=== PATIENT | male | born 1945 | race Caucasian/White ===

== ENCOUNTER 2019-03-09 14:09 | Observation (INO) | payer MEDICARE, BC ==
--- NOTE | 2019-03-09 15:04 | CR ---
[id number] RAD/RAD Chest PA And Lateral EXAM: RAD Chest PA And Lateral INDICATION: FEVER, DIZZINESS. COMPARISON: None. DISCUSSION: Cardiomediastinal silhouette is enlarged. No infiltrate, effusion, pneumothorax, or edema. Central predominant airway thickening. IMPRESSION: Findings consistent with bronchitis. No focal infiltrate. Armin Solis DO 03/09/19 1507 Thank you for allowing us to participate in the care of your patient.
[2019-03-09 15:08] LABS: ANION GAP 17.4 mmol/L (5-15); CHLORIDE,CL 100 mmol/L (98-115); SODIUM,NA 135 mmol/L (136-145)
[2019-03-09] MEDS ORDERED: Sodium Chloride 0.9% 10 ML Syringe FLUSH PRN (15:09)
[2019-03-09] MEDS ORDERED: Acetaminophen 500 MG Tab PO ONE (15:10)
[2019-03-09] MEDS ORDERED: Sodium Chloride 0.9% 1,000 ML IV ONE ×2 (15:12→15:13)
[2019-03-09] MEDS ORDERED: methylPREDNISolone Sodium Succinate 125 MG/2 ML SDV IVPUSH ONE (15:12)
[2019-03-09] MEDS ORDERED: Albuterol 0.083% 2.5 MG/3 ML Neb Soln NEB ONE (15:19)
[2019-03-09] MEDS ORDERED: Oseltamivir 75 MG Cap PO ONE (15:35)
--- NOTE | 2019-03-09 16:07 | EDM.PDOC ---
ED HPI GENERAL MEDICAL PROBLEM - General Chief Complaint: Fever Stated Complaint: NOT FEELING WELL Time Seen by Provider: 03/09/19 14:20 Source of Information: Reports: Patient History Limitations: Reports: No Limitations - History of Present Illness INITIAL COMMENTS - FREE TEXT/NARRATIVE: 73-year-old male presents emergency room with the complaints of fever, chills, cough, shortness of breath and dizziness complaints. He has not felt well over the last 24-36 hours. He's not had much of an appetite. He feels a week. He's had some mild difficulty with breathing and has a history of asthma with an albuterol inhaler as needed. Denies any abdominal pain or headaches. He has some muscle aches. Onset: Gradual Onset Date: 03/08/19 Duration: Day(s):, Getting Worse Location: Reports: Generalized Quality: Reports: Ache Severity: Severe Improves with: Reports: None Worsens with: Reports: Movement (Dizziness, vertigo) Associated Symptoms: Reports: Cough, Fever/Chills, Malaise, Shortness of Breath , Weakness - Related Data Allergies Allergy/AdvReac Type Severity Reaction Status Date / Time house dust Allergy Shortness Verified 03/09/19 14:55 of Breath Home Meds: Home Meds Albuterol [Ventolin HFA] 1 puff INH BID 03/09/19 [History] Escitalopram Oxalate 20 mg PO DAILY 03/09/19 [History] Montelukast Sodium 10 mg PO DAILY 03/09/19 [History] Primidone 50 mg PO DAILY 03/09/19 [History] Propranolol HCl [Propranolol] 80 mg PO DAILY 03/09/19 [History] Spironolactone [Aldactone] 25 mg PO DAILY 03/09/19 [History] Topiramate 50 mg PO DAILY 03/09/19 [History] allopurinoL [Zyloprim] 300 mg PO DAILY 03/09/19 [History] clonazePAM [Clonazepam] 0.5 mg PO BID 03/09/19 [History] Social & Family History - Tobacco Use Smoking Status *Q: Never Smoker Second Hand Smoke Exposure: No - Caffeine Use Caffeine Use: Reports: Soda - Recreational Drug Use Recreational Drug Use: No ED ROS GENERAL - Review of Systems Review Of Systems: See Below Constitutional: Reports: Fever, Chills, Weakness, Fatigue, Decreased Appetite HEENT: Reports: No Symptoms Respiratory: Reports: Shortness of Breath, Cough Cardiovascular: Reports: Blood Pressure Problem, Lightheadedness. Denies: Chest Pain Endocrine: Reports: No Symptoms GI/Abdominal: Denies: Abdominal Pain, Nausea, Vomiting : Reports: No Symptoms Musculoskeletal: Reports: No Symptoms Skin: Reports: Diaphoresis. Denies: Rash Neurological: Reports: Dizziness Psychiatric: Reports: No Symptoms Hematologic/Lymphatic: Reports: No Symptoms Immunologic: Reports: No Symptoms ED EXAM, GENERAL - Physical Exam Exam: See Below Exam Limited By: No Limitations General Appearance: Alert, Mild Distress, Obese Eye Exam: Bilateral Eye: EOMI Ears: Normal Canal, Hearing Grossly Normal, Normal TMs Nose: Normal Inspection Throat/Mouth: Normal Inspection, Normal Voice, No Airway Compromise Head: Atraumatic, Normocephalic Neck: Normal Inspection, Supple Respiratory/Chest: Respiratory Distress (Tachypnea), Decreased Breath Sounds Cardiovascular: Regular Rate, Rhythm GI/Abdominal: Normal Bowel Sounds, Soft, Non-Tender Back Exam: Normal Inspection Extremities: Normal Inspection Neurological: Alert, Oriented Psychiatric: Normal Affect, Normal Mood Skin Exam: Warm, Diaphoretic Course - Vital Signs Last Recorded V/S: Last Vital Signs Temp 101.3 F H 03/09/19 14:36 Pulse 70 03/09/19 14:36 Resp 31 H 03/09/19 14:36 BP 184/66 H 03/09/19 14:36 Pulse Ox 96 03/09/19 14:36 - Orders/Labs/Meds Orders: Active Orders 24 hr Category Date Time Status BASIC METABOLIC PANEL,BMP [CHEM] Stat Lab 03/09/19 14:30 Received Labs: Laboratory Tests 03/09/19 Range/Units 14:30 WBC 12.34 H (5.00-10.00) 10^3/uL RBC 4.53 (4.50-6.00) 10^6/uL Hgb 13.0 (13.0-17.0) g/dL Hct 39.0 L (40.0-52.0) % MCV 86.1 (82.0-92.0) fL MCH 28.7 (27.0-31.0) pg MCHC 33.3 (32.0-36.0) g/dL RDW 14.4 (11.5-14.5) % Plt Count 240 (150-400) 10^3/uL MPV 10.6 H (7.4-10.4) fL Immature Gran % (Auto) 0.2 (0.0-5.0) % Neut % (Auto) 79.3 H (50.0-70.0) % Lymph % (Auto) 13.8 L (20.0-40.0) % [place] % (Auto) 6.2 (2.0-8.0) % Eos % (Auto) 0.1 L (1.0-3.0) % Baso % (Auto) 0.4 (0.0-1.0) % Immature Gran # (Auto) 0.03 (0.00-0.50) 10^3/uL Neut # (Auto) 9.78 H (2.50-7.00) 10^3/uL Lymph # (Auto) 1.70 (1.00-4.00) 10^3/uL [place] # (Auto) 0.77 (0.10-0.80) 10^3/uL Eos # (Auto) 0.01 L (0.10-0.30) 10^3/uL Baso # (Auto) 0.05 (0.00-0.10) 10^3/uL - Re-Assessments/Exams Free Text/Narrative Re-Assessment/Exam: 03/09/19 16:17 1 L fluid was given normal saline 125 mg site Medrol IV Albuterol nebulized treatment Departure - Departure Time of Disposition: 16:18 Disposition: Refer to Observation Condition: Fair Clinical Impression: Influenza A virus present, Bronchitis, Tachypnea - Discharge Information Referrals: PCP,Not In Area [Primary Care Provider] - Sepsis Event Note - Evaluation Sepsis Screening Result: No Definite Risk Current Stage of Sepsis: Sepsis Possible Source of Sepsis: Pulmonary - Focused Exam Sepsis Event Note Statement: Focused Sepsis Exam Completed Vital Signs: Vital Signs Temp Pulse Resp BP Pulse Ox 03/09/19 14:36 101.3 F H 70 31 H 184/66 H 96 Respiratory Effort Without Exertion: Abdominal Breathing Pulse Description: 2+ Normal Peripheral Pulse Location: Radial Skin Exam (Focused Sepsis): Diaphoretic Date Exam was Performed: 03/09/19 Time Exam was Performed: 16:22 - My Orders Last 24 Hours: My Active Orders 03/09/19 14:30 BASIC METABOLIC PANEL,BMP [CHEM] Stat - Assessment/Plan Last 24 Hours: My Active Orders 03/09/19 14:30 BASIC METABOLIC PANEL,BMP [CHEM] Stat Assessment:: Influenza A Tachypnea Bronchitis Plan: Patient has underlying cardiopulmonary compromise due to his history of asthma and bronchitis. He continues to be symptomatic with feeling dizzy. His temperature remains 101 despite thousand milligrams of Tylenol. We will plan on placing him in observation with fluid resuscitation, nebulizer treatments as needed and continue to work on lowering the patient's fever. He was given 75 mg of Tamiflu in the emergency room. We will start a second liter of fluids running at 125 an hour. Discussed this with the [facility] Cony Wright nurse practitioner who will manage the patient's care in the hospital.
[2019-03-09] MEDS ORDERED: Sodium Chloride 0.9% 1,000 ML ONE (16:27)
[2019-03-09] MEDS ORDERED: Acetaminophen 325 MG Tab PO PRN (16:40)
[2019-03-09] MEDS: Sodium Chloride 0.9% 1,000 ML IV SCH (17:22)
--- NOTE | 2019-03-09 17:22 | PCM.HP.2 ---
H&P History of Present Illness - General Date of Service: 03/09/19 Admit Problem/Dx: Admission Diagnosis/Problem Admission Diagnosis/Problem Influenza due to Influenza A virus Source of Information: Patient, Old Records, RN History Limitations: Reports: No Limitations - Related Data Allergies/Adverse Reactions: Allergies Allergy/AdvReac Type Severity Reaction Status Date / Time house dust Allergy Shortness Verified 03/09/19 14:55 of Breath Home Medications: Home Meds Albuterol [Ventolin HFA] 1 puff INH BID 03/09/19 [History] Escitalopram Oxalate 20 mg PO DAILY 03/09/19 [History] Fluticasone/Salmeterol [Advair 500-50] 1 puff BID 03/09/19 [History] Montelukast Sodium 10 mg PO DAILY 03/09/19 [History] Primidone 50 mg PO DAILY 03/09/19 [History] Propranolol HCl [Propranolol] 80 mg PO DAILY 03/09/19 [History] Spironolactone [Aldactone] 25 mg PO DAILY 03/09/19 [History] Topiramate 50 mg PO DAILY 03/09/19 [History] allopurinoL [Zyloprim] 300 mg PO DAILY 03/09/19 [History] clonazePAM [Clonazepam] 0.5 mg PO BID 03/09/19 [History] Past Medical History HEENT History: Reports: None Cardiovascular History: Reports: Hypertension Respiratory History: Reports: Asthma, Sleep Apnea Gastrointestinal History: Reports: None Genitourinary History: Reports: None Musculoskeletal History: Reports: Gout Neurological History: Reports: Other (See Below) Other Neuro History: hand tremors Psychiatric History: Reports: Depression Endocrine/Metabolic History: Reports: Obesity/BMI 30+ Hematologic History: Reports: None Immunologic History: Reports: None Oncologic (Cancer) History: Reports: None Dermatologic History: Reports: None - Past Surgical History Head Surgeries/Procedures: Reports: None HEENT Surgical History: Reports: None Cardiovascular Surgical History: Reports: None Respiratory Surgical History: Reports: None Endocrine Surgical History: Reports: None Neurological Surgical History: Reports: None Dermatological Surgical History: Reports: None Social & Family History - Family History Cardiac: Reports: Hypertension (mother & father) Neurological: Reports: Parkinson's (mother) - Tobacco Use Smoking Status *Q: Never Smoker Second Hand Smoke Exposure: No - Caffeine Use Caffeine Use: Reports: Soda - Recreational Drug Use Recreational Drug Use: No H&P Review of Systems - Review of Systems: Review Of Systems: See Below General: Reports: Fever, Chills, Malaise, Weakness, Fatigue, Diaphoresis, Decreased Appetite HEENT: Reports: Glasses. Denies: Headaches, Rhinitis, Post Nasal Drip, Sinus Congestion, Sore Throat Pulmonary: Reports: Shortness of Breath, Pleuritic Chest Pain, Cough, Sputum Cardiovascular: Reports: Dyspnea on Exertion, Lightheadedness. Denies: Chest Pain, Edema Gastrointestinal: Reports: Decreased Appetite. Denies: Abdominal Pain, Constipation, Diarrhea, Nausea, Vomiting Genitourinary: Reports: No Symptoms Musculoskeletal: Reports: Muscle Pain Psychiatric: Denies: Confusion Neurological: Reports: Dizziness, Headache Immunologic: Reports: Grass Allergy Exam - Exam Exam: See Below - Vital Signs Vital Signs: Last Vital Signs Temp 100.3 F 03/09/19 16:35 Pulse 73 03/09/19 16:35 Resp 25 H 03/09/19 16:35 BP 161/56 H 03/09/19 16:35 Pulse Ox 94 L 03/09/19 16:35 Weight: 244 lb 12.8 oz - Exam Quality Assessment: DVT Prophylaxis (lovenox ). No: Supplemental Oxygen (94% on room air), Urinary Catheter General: Alert, Oriented (x3), Cooperative, Other (No acute distress, Obese) HEENT: Conjunctiva Clear, Hearing Intact, TMs Clear, Glasses, Other (Moody face appearance). No: Mucosa Moist & [place] (pink and dry), Posterior Pharynx Clear ( mild erythema w/o exudate) Neck: Supple, Trachea Midline. No: Lymphadenopathy Lungs: Wheezing (expiratory wheezes throughout), Other (Mild tachypnea, no accessory muscle use). No: Crackles, Rhonchi Cardiovascular: Regular Rate, Regular Rhythm, Normal S1, Normal S2. No: Systolic Murmur, Diastolic Murmur GI/Abdominal Exam: Soft, Non-Tender, No Distention, Abnormal Bowel Sounds ( hypoactive x 4), Other (large, round) Extremities: No Pedal Edema Skin: Warm, Moist Neuro Extensive - Mental Status: Alert, Oriented x3, Normal Mood/Affect, Normal Cognition, Memory Intact Psychiatric: Alert, Normal Affect, Normal Mood - Patient Data Lab Results Last 24 hrs: Laboratory Results - last 24 hr 03/09/19 03/09/19 Range/Units 14:30 14:30 WBC 12.34 H (5.00-10.00) 10^3/uL RBC 4.53 (4.50-6.00) 10^6/uL Hgb 13.0 (13.0-17.0) g/dL Hct 39.0 L (40.0-52.0) % MCV 86.1 (82.0-92.0) fL MCH 28.7 (27.0-31.0) pg MCHC 33.3 (32.0-36.0) g/dL RDW 14.4 (11.5-14.5) % Plt Count 240 (150-400) 10^3/uL MPV 10.6 H (7.4-10.4) fL Immature Gran % (Auto) 0.2 (0.0-5.0) % Neut % (Auto) 79.3 H (50.0-70.0) % Lymph % (Auto) 13.8 L (20.0-40.0) % [place] % (Auto) 6.2 (2.0-8.0) % Eos % (Auto) 0.1 L (1.0-3.0) % Baso % (Auto) 0.4 (0.0-1.0) % Immature Gran # (Auto) 0.03 (0.00-0.50) 10^3/uL Neut # (Auto) 9.78 H (2.50-7.00) 10^3/uL Lymph # (Auto) 1.70 (1.00-4.00) 10^3/uL [place] # (Auto) 0.77 (0.10-0.80) 10^3/uL Eos # (Auto) 0.01 L (0.10-0.30) 10^3/uL Baso # (Auto) 0.05 (0.00-0.10) 10^3/uL Sodium 135 L (136-145) mmol/L Potassium 3.8 (3.3-5.3) mmol/L Chloride 100 (98-115) mmol/L Carbon Dioxide 21.4 (21.0-32.0) mmol/L Anion Gap 17.4 H (5-15) mmol/L BUN 14 (6-25) mg/dL Creatinine 0.89 (0.51-1.17) mg/dL Est Cr Clr Drug Dosing 71.52 mL/min Estimated GFR (MDRD) > 60 mL/min Glucose 115 H (75 - 99) mg/dL Calcium 8.1 L (8.7-10.3) mg/dL Result Diagrams: 03/09/19 14:30 03/09/19 14:30 [place] Results Last 24 hrs: Microbiology 03/09/19 15:20 Influenza Type A Antigen Screen - Final Nasal, Unspecified Positive Influenza A Ag Influenza Type B Antigen Screen - Final NEGATIVE INFLUENZA B VIRUS AG REFERENCE RANGE: NEGATIVE Sepsis Event Note - Evaluation Sepsis Screening Result: Sepsis Risk - Focused Exam Vital Signs: Vital Signs Temp Temp Pulse Resp BP Pulse Ox 03/09/19 16:35 100.3 F 73 25 H 161/56 H 94 L 03/09/19 16:10 101.1 F H 70 29 H 158/55 H 95 03/09/19 15:44 101.1 F H 03/09/19 15:14 101.3 F H 03/09/19 14:36 101.3 F H 70 31 H 184/66 H 96 03/09/19 14:25 101.3 F H 70 31 H 184/66 H 96 Date Exam was Performed: 03/09/19 Time Exam was Performed: 17:58 Problem List Initiated/Reviewed/Updated: Yes Orders Last 24hrs: Active Orders 24 hr Category Date Time Status Patient Status [ADT] Routine ADT 03/09/19 16:40 Active Height and Weight [RC] DAILY Care 03/09/19 16:40 Active Intake and Output [RC] QSHIFT Care 03/09/19 16:43 Active Oxygen Therapy [RC] PRN Care 03/09/19 16:43 Active Peripheral IV Care [RC] . DIRECTED Care 03/09/19 15:09 Active Pulse Oximetry [RC] PRN Care 03/09/19 16:43 Active RT Aerosol Therapy [RC] ASDIRECTED Care 03/09/19 15:19 Active Vital Signs [RC] Q4H Care 03/09/19 16:40 Active ADA Diabetic [[place] [employer] Diet] [DIET Diet 03/09/19 Dinner Ordered ] B-TYPE NATRIURETIC PEPTIDE,BNP [CHEM] Routine Lab 03/09/19 17:15 Ordered CULTURE BLOOD [BC] Stat Lab 03/09/19 17:15 Ordered CULTURE BLOOD [BC] Stat Lab 03/09/19 17:15 Ordered ESR [SEDIMENTATION RATE MANUAL] [HEME] Routine Lab 03/09/19 17:15 Ordered LACTIC ACID [CHEM] Routine Lab 03/09/19 17:15 Ordered PROCALCITONIN [REF] Routine Lab 03/09/19 17:16 Ordered TSH ULTRASENSITIVE [CHEM] Routine Lab 03/09/19 17:16 Ordered UA RFX [place] AND CULT IF INDIC [URIN] Routine Lab 03/09/19 17:16 Ordered Acetaminophen [Tylenol] Med 03/09/19 16:40 Active 650 mg PO Q4H PRN Sodium Chloride 0.9% [Normal Saline] 1,000 ml Med 03/09/19 17:15 Ordered IV ASDIRECTED Sodium Chloride 0.9% [Saline Flush] Med 03/09/19 15:09 Active 10 ml FLUSH Q8HR PRN Blood Culture x2 Reflex Set [OM.PC] Stat Oth 03/09/19 17:15 Ordered Peripheral IV Insertion Adult [OM.PC] Routine Oth 03/09/19 15:09 Ordered Resuscitation Status Routine Resus Stat 03/09/19 16:40 Ordered Medication Orders Acetaminophen (Tylenol) 650 mg PO Q4H PRN PRN Reason: analgesia/fever Sodium Chloride (Normal Saline) 1,000 mls @ 125 mls/hr IV ASDIRECTED PRITI Sodium Chloride (Saline Flush) 10 ml FLUSH Q8HR PRN PRN Reason: keep vein open Assessment/Plan Comment:: HPI: This 73 yo male presented to the ED with concerns of 24-36 hours of fevers , chills, productive cough, shortness of breath and dizziness. Has had a poor appetite. He has underlying asthma. He did receive an influenza vaccine this year. He lives alone with a daughter next door. He follows with customer care professional, Dr. Will, at [facility]. Last evaluated by him April 2018. Pertinent ED work-up: WBC 12.3 with neutrophilia Hgb 13.0 Na 135 Creatinine 0.89 Influenza swab positive for type A CXR-findings consistent with bronchitis, no focal infiltrate 1 liter NS bolus Solumedrol 125 mg IV x 1 Tamiflu 75 mg po x 1 Albuterol neb x 1 Primary assessment/plan: Influenza A. ESR, lactic acid, procalcitonin pending. Tylenol PRN. Albuterol nebs QID. Continue oral tamiflu. Fever. Documented fever >101 so will obtain BC x 2. Obtain UA. Dehydration. Continue IVFs of NS at 125 mL/hr. Dizziness. Likely related to dehydration. Noted improvement upon arrival to the med-surg floor. Shortness of breath. BNP pending. ECHO (2018) noted EF 65-70% with normal systolic & diastolic dysfunction. Moderate persistent asthma. Prednisone 40 mg po daily starting tomorrow. Hold advair and albuterol inhalers for now. Continue Singulair. No oxygen requirement. Moody face appearance. TSH pending. HTN. Hold spironolactone d/t dehydration. Review of past record notes he had been on norvasc and irbesartan in the past. May need to restart these, but will monitor for now. Secondary assessment/plan: Allergic rhinitis. Sleep apnea. HLD. LDL 97 (2018). Not on statin. Gout. Continue allopurinol. Obesity. Depression. Continue lexapro. Anxiety. Continue clonzepam. Seasonal allergies. Essential tremor. Continue primidone, propranolol, and topamax. Hyperglycemia. A1c 6.4 (2018). Quit taking metformin. DVT prophylaxis. Score 4. Lovenox 40 mg SQ daily. Overall plan: Continue supportive cares with IVFs, tylenol, albuterol, & tamiflu. Monitor respiratory and hemodynamic status. Anticipate discharge in the AM. - Mortality Measure Prognosis:: Good
[2019-03-09] MEDS: Enoxaparin 40 MG/0.4 ML Syringe SUBCUT SCH (18:29)
[2019-03-09] MEDS: ClonazePAM 0.5 MG Tab PO SCH (20:48)
[2019-03-09] MEDS: Albuterol 0.083% 2.5 MG/3 ML Neb Soln NEB SCH (23:43)
[2019-03-10] MEDS: Sodium Chloride 0.9% 1,000 ML IV SCH (00:03)
[2019-03-10] MEDS: Albuterol 0.083% 2.5 MG/3 ML Neb Soln NEB SCH ×4 (05:59→22:35)
[2019-03-10 07:52] LABS: ANION GAP 12.3 mmol/L (5-15); CHLORIDE,CL 107 mmol/L (98-115); SODIUM,NA 136 mmol/L (136-145)
[2019-03-10] MEDS: predniSONE 20 MG Tab PO SCH (08:37)
[2019-03-10] MEDS: ClonazePAM 0.5 MG Tab PO SCH ×2 (08:37→20:09)
[2019-03-10] MEDS: Montelukast 10 MG Tab PO SCH (08:37)
[2019-03-10] MEDS: Topiramate 25 MG Tab PO SCH (08:37)
[2019-03-10] MEDS: Propranolol 80 MG Cap.ER PO SCH (08:37)
[2019-03-10] MEDS: Primidone 50 MG Tab PO SCH (08:37)
[2019-03-10] MEDS: Escitalopram 10 MG Tab PO SCH (08:37)
[2019-03-10] MEDS: Oseltamivir 75 MG Cap PO SCH ×2 (08:38→20:09)
[2019-03-10] MEDS: Allopurinol 100 MG Tab PO SCH (08:38)
--- NOTE | 2019-03-10 10:26 | PCM.PN ---
- General Info Date of Service: 03/10/19 Functional Status: Reports: Pain Controlled, Tolerating Diet, Ambulating, Urinating. Denies: New Symptoms - Review of Systems General: Reports: Weakness, Fatigue, Malaise. Denies: Fever, Chills HEENT: Reports: Glasses. Denies: Headaches, Sinus Congestion, Sore Throat Pulmonary: Reports: Shortness of Breath, Cough, Sputum. Denies: Pleuritic Chest Pain Cardiovascular: Reports: Dyspnea on Exertion, Lightheadedness. Denies: Chest Pain, Edema Gastrointestinal: Denies: Abdominal Pain, Constipation, Decreased Appetite, Diarrhea, Nausea, Vomiting Genitourinary: Reports: No Symptoms Neurological: Reports: Dizziness. Denies: Headache Psychiatric: Reports: No Symptoms - Patient Data Vitals - Most Recent: Last Vital Signs Temp 96.9 F 03/10/19 06:53 Pulse 62 03/10/19 08:37 Resp 20 03/10/19 06:53 BP 137/67 03/10/19 08:37 Pulse Ox 95 03/10/19 06:53 Weight - Most Recent: 240 lb 6 oz I&O - Last 24 Hours: Intake & Output 03/09/19 03/10/19 03/10/19 22:59 06:59 14:59 Intake Total 300 1720 Output Total 250 Balance 50 1720 Lab Results Last 24 Hours: Laboratory Results - last 24 hr 03/09/19 03/09/19 03/09/19 Range/Units 14:30 14:30 14:30 WBC 12.34 H (5.00-10.00) 10^3/uL RBC 4.53 (4.50-6.00) 10^6/uL Hgb 13.0 (13.0-17.0) g/dL Hct 39.0 L (40.0-52.0) % MCV 86.1 (82.0-92.0) fL MCH 28.7 (27.0-31.0) pg MCHC 33.3 (32.0-36.0) g/dL RDW 14.4 (11.5-14.5) % Plt Count 240 (150-400) 10^3/uL MPV 10.6 H (7.4-10.4) fL Immature Gran % (Auto) 0.2 (0.0-5.0) % Neut % (Auto) 79.3 H (50.0-70.0) % Lymph % (Auto) 13.8 L (20.0-40.0) % Carbon % (Auto) 6.2 (2.0-8.0) % Eos % (Auto) 0.1 L (1.0-3.0) % Baso % (Auto) 0.4 (0.0-1.0) % Immature Gran # (Auto) 0.03 (0.00-0.50) 10^3/uL Neut # (Auto) 9.78 H (2.50-7.00) 10^3/uL Lymph # (Auto) 1.70 (1.00-4.00) 10^3/uL Carbon # (Auto) 0.77 (0.10-0.80) 10^3/uL Eos # (Auto) 0.01 L (0.10-0.30) 10^3/uL Baso # (Auto) 0.05 (0.00-0.10) 10^3/uL ESR 29 H (0-15) mm/hr Sodium 135 L (136-145) mmol/L Potassium 3.8 (3.3-5.3) mmol/L Chloride 100 (98-115) mmol/L Carbon Dioxide 21.4 (21.0-32.0) mmol/L Anion Gap 17.4 H (5-15) mmol/L BUN 14 (6-25) mg/dL Creatinine 0.89 (0.51-1.17) mg/dL Est Cr Clr Drug Dosing 71.52 mL/min Estimated GFR (MDRD) > 60 mL/min Glucose 115 H (75 - 99) mg/dL Lactic Acid (0.4-2.0) mmol/L Calcium 8.1 L (8.7-10.3) mg/dL Total Bilirubin (0.2-1.0) mg/dL AST (15-37) U/L ALT (12-78) U/L Alkaline Phosphatase (46-116) IU/L B-Natriuretic Peptide (0-100) pg/mL Total Protein (6.4-8.2) g/dL Albumin (3.00-4.80) g/dL TSH, Ultra Sensitive (0.340-4.820) uIU/mL Specimen Type Urine Color (YELLOW) Urine Appearance (CLEAR) Urine pH (5.0-9.0) Ur Specific [place] (1.005-1.030) Urine Protein (NEGATIVE) mg/dL Urine Glucose (UA) (NEGATIVE) mg/dL Urine Ketones (NEGATIVE) mg/dL Urine Occult Blood (NEGATIVE) Urine Nitrite (NEGATIVE) Urine Bilirubin (NEGATIVE) Urine Urobilinogen (0.2-1.0) E.U./dL Ur Leukocyte Esterase (NEGATIVE) Urine RBC (0-5) /HPF Urine WBC (0-5) /HPF Ur Epithelial Cells /LPF Urine Bacteria (NONE TO FEW) /HPF 03/09/19 03/09/19 03/09/19 Range/Units 17:16 18:20 18:20 WBC (5.00-10.00) 10^3/uL RBC (4.50-6.00) 10^6/uL Hgb (13.0-17.0) g/dL Hct (40.0-52.0) % MCV (82.0-92.0) fL MCH (27.0-31.0) pg MCHC (32.0-36.0) g/dL RDW (11.5-14.5) % Plt Count (150-400) 10^3/uL MPV (7.4-10.4) fL Immature Gran % (Auto) (0.0-5.0) % Neut % (Auto) (50.0-70.0) % Lymph % (Auto) (20.0-40.0) % Carbon % (Auto) (2.0-8.0) % Eos % (Auto) (1.0-3.0) % Baso % (Auto) (0.0-1.0) % Immature Gran # (Auto) (0.00-0.50) 10^3/uL Neut # (Auto) (2.50-7.00) 10^3/uL Lymph # (Auto) (1.00-4.00) 10^3/uL Carbon # (Auto) (0.10-0.80) 10^3/uL Eos # (Auto) (0.10-0.30) 10^3/uL Baso # (Auto) (0.00-0.10) 10^3/uL ESR (0-15) mm/hr Sodium (136-145) mmol/L Potassium (3.3-5.3) mmol/L Chloride (98-115) mmol/L Carbon Dioxide (21.0-32.0) mmol/L Anion Gap (5-15) mmol/L BUN (6-25) mg/dL Creatinine (0.51-1.17) mg/dL Est Cr Clr Drug Dosing mL/min Estimated GFR (MDRD) mL/min Glucose (75 - 99) mg/dL Lactic Acid 0.8 (0.4-2.0) mmol/L Calcium (8.7-10.3) mg/dL Total Bilirubin (0.2-1.0) mg/dL AST (15-37) U/L ALT (12-78) U/L Alkaline Phosphatase (46-116) IU/L B-Natriuretic Peptide 298 H (0-100) pg/mL Total Protein (6.4-8.2) g/dL Albumin (3.00-4.80) g/dL TSH, Ultra Sensitive 0.630 (0.340-4.820) uIU/mL Specimen Type . Urine Color Yellow (YELLOW) Urine Appearance Clear (CLEAR) Urine pH 5.0 (5.0-9.0) Ur Specific [place] <= 1.005 (1.005-1.030) Urine Protein Negative (NEGATIVE) mg/dL Urine Glucose (UA) Negative (NEGATIVE) mg/dL Urine Ketones Negative (NEGATIVE) mg/dL Urine Occult Blood Trace-lysed H (NEGATIVE) Urine Nitrite Negative (NEGATIVE) Urine Bilirubin Negative (NEGATIVE) Urine Urobilinogen 0.2 (0.2-1.0) E.U./dL Ur Leukocyte Esterase Negative (NEGATIVE) Urine RBC 0-5 (0-5) /HPF Urine WBC 5-10 H (0-5) /HPF Ur Epithelial Cells Few /LPF Urine Bacteria Occasional (NONE TO FEW) /HPF 03/10/19 03/10/19 Range/Units 07:20 07:20 WBC 10.06 H (5.00-10.00) 10^3/uL RBC 4.35 L (4.50-6.00) 10^6/uL Hgb 12.2 L (13.0-17.0) g/dL Hct 37.5 L (40.0-52.0) % MCV 86.2 (82.0-92.0) fL MCH 28.0 (27.0-31.0) pg MCHC 32.5 (32.0-36.0) g/dL RDW 14.3 (11.5-14.5) % Plt Count 239 (150-400) 10^3/uL MPV 10.4 (7.4-10.4) fL Immature Gran % (Auto) 0.3 (0.0-5.0) % Neut % (Auto) 80.8 H (50.0-70.0) % Lymph % (Auto) 14.2 L (20.0-40.0) % Carbon % (Auto) 4.6 (2.0-8.0) % Eos % (Auto) 0.0 L (1.0-3.0) % Baso % (Auto) 0.1 (0.0-1.0) % Immature Gran # (Auto) 0.03 (0.00-0.50) 10^3/uL Neut # (Auto) 8.13 H (2.50-7.00) 10^3/uL Lymph # (Auto) 1.43 (1.00-4.00) 10^3/uL Carbon # (Auto) 0.46 (0.10-0.80) 10^3/uL Eos # (Auto) 0.00 L (0.10-0.30) 10^3/uL Baso # (Auto) 0.01 (0.00-0.10) 10^3/uL ESR (0-15) mm/hr Sodium 136 (136-145) mmol/L Potassium 4.1 (3.3-5.3) mmol/L Chloride 107 (98-115) mmol/L Carbon Dioxide 20.8 L (21.0-32.0) mmol/L Anion Gap 12.3 (5-15) mmol/L BUN 15 (6-25) mg/dL Creatinine 0.71 (0.51-1.17) mg/dL Est Cr Clr Drug Dosing 89.65 mL/min Estimated GFR (MDRD) > 60 mL/min Glucose 130 H (75 - 99) mg/dL Lactic Acid (0.4-2.0) mmol/L Calcium 7.8 L (8.7-10.3) mg/dL Total Bilirubin 0.4 (0.2-1.0) mg/dL AST 23 (15-37) U/L ALT 27 (12-78) U/L Alkaline Phosphatase 82 (46-116) IU/L B-Natriuretic Peptide (0-100) pg/mL Total Protein 6.6 (6.4-8.2) g/dL Albumin 2.81 L (3.00-4.80) g/dL TSH, Ultra Sensitive (0.340-4.820) uIU/mL Specimen Type Urine Color (YELLOW) Urine Appearance (CLEAR) Urine pH (5.0-9.0) Ur Specific [place] (1.005-1.030) Urine Protein (NEGATIVE) mg/dL Urine Glucose (UA) (NEGATIVE) mg/dL Urine Ketones (NEGATIVE) mg/dL Urine Occult Blood (NEGATIVE) Urine Nitrite (NEGATIVE) Urine Bilirubin (NEGATIVE) Urine Urobilinogen (0.2-1.0) E.U./dL Ur Leukocyte Esterase (NEGATIVE) Urine RBC (0-5) /HPF Urine WBC (0-5) /HPF Ur Epithelial Cells /LPF Urine Bacteria (NONE TO FEW) /HPF [place] Results Last 24 Hours: Microbiology 03/09/19 15:20 Influenza Type A Antigen Screen - Final Nasal, Unspecified Positive Influenza A Ag Influenza Type B Antigen Screen - Final NEGATIVE INFLUENZA B VIRUS AG REFERENCE RANGE: NEGATIVE Med Orders - Current: Current Medications Acetaminophen (Tylenol) 650 mg PO Q4H PRN PRN Reason: analgesia/fever Albuterol (Proventil Neb Soln) 2.5 mg NEB Q6HRRT [facility] Last Admin: 03/10/19 05:59 Dose: 2.5 mg Allopurinol (Zyloprim) 300 mg PO DAILY [facility] Last Admin: 03/10/19 08:38 Dose: 300 mg Clonazepam (Klonopin) 0.5 mg PO BID [facility] Last Admin: 03/10/19 08:37 Dose: 0.5 mg Enoxaparin Sodium (Lovenox) 40 mg SUBCUT Q24H [facility] Last Admin: 03/09/19 18:29 Dose: 40 mg Escitalopram Oxalate (Lexapro) 20 mg PO DAILY [facility] Last Admin: 03/10/19 08:37 Dose: 20 mg Montelukast Sodium (Singulair) 10 mg PO DAILY [facility] Last Admin: 03/10/19 08:37 Dose: 10 mg Oseltamivir Phosphate (Tamiflu) 75 mg PO BID [facility] Last Admin: 03/10/19 08:38 Dose: 75 mg Prednisone (Prednisone) 40 mg PO WITHBREAKFAST [facility] Last Admin: 03/10/19 08:37 Dose: 40 mg Primidone (Mysoline) 50 mg PO DAILY [facility] Last Admin: 03/10/19 08:37 Dose: 50 mg Propranolol HCl (Inderal La) 80 mg PO DAILY [facility] Last Admin: 03/10/19 08:37 Dose: 80 mg Sodium Chloride (Saline Flush) 10 ml FLUSH Q8HR PRN PRN Reason: keep vein open Topiramate (Topamax) 50 mg PO DAILY [facility] Last Admin: 03/10/19 08:37 Dose: 50 mg Discontinued Medications Acetaminophen (Tylenol Extra Strength) 1,000 mg PO ONETIME ONE Stop: 03/09/19 15:11 Last Admin: 03/09/19 15:14 Dose: 1,000 mg Albuterol (Proventil Neb Soln) 2.5 mg NEB ONETIME ONE Stop: 03/09/19 15:20 Last Admin: 03/09/19 15:24 Dose: 2.5 mg Sodium Chloride (Normal Saline) 1,000 mls @ 999 mls/hr IV .BOLUS ONE Stop: 03/09/19 16:12 Last Admin: 03/09/19 15:17 Dose: 999 mls/hr Sodium Chloride (Normal Saline) 1,000 mls @ 1,000 mls/hr IV .BOLUS ONE Stop: 03/09/19 16:12 Last Admin: 03/09/19 15:28 Dose: Not Given Sodium Chloride (Normal Saline) Confirm Administered Dose 1,000 mls @ as directed .ROUTE .STK-MED ONE Stop: 03/09/19 16:28 Last Admin: 03/09/19 17:08 Dose: Not Given Sodium Chloride (Normal Saline) 1,000 mls @ 125 mls/hr IV ASDIRECTED [facility] Last Admin: 03/10/19 00:03 Dose: 125 mls/hr Methylprednisolone Sodium Succinate (Solu-Medrol) 125 mg IVPUSH ONETIME ONE Stop: 03/09/19 15:13 Last Admin: 03/09/19 15:17 Dose: 125 mg Oseltamivir Phosphate (Tamiflu) 75 mg PO ONETIME ONE Stop: 03/09/19 15:36 Last Admin: 03/09/19 15:41 Dose: 75 mg - Exam Quality Assessment: DVT Prophylaxis (lovenox). No: Supplemental Oxygen, Urine Catheter General: Alert, Oriented, Cooperative, No Acute Distress Lungs: Clear to Auscultation (right lung flores), Normal Respiratory Effort, Wheezing (left lung flores) Cardiovascular: Regular Rate, Regular Rhythm, No Murmurs GI/Abdominal Exam: Normal Bowel Sounds, Soft, Non-Tender, No Distention, Other ( large round) Extremities: No Pedal Edema Skin: Warm, Dry. No: Moist Neurological: Normal Speech Psy/Mental Status: Alert, Normal Affect, Normal Mood Sepsis Event Note - Evaluation Sepsis Screening Result: No Definite Risk - Focused Exam Vital Signs: Vital Signs Temp Pulse Pulse Resp BP BP Pulse Ox 03/10/19 08:37 62 137/67 03/10/19 06:53 96.9 F 65 20 152/71 H 95 03/10/19 05:59 72 03/10/19 03:00 97.6 F 63 20 144/71 H 95 03/09/19 23:40 66 03/09/19 23:00 98.2 F 64 20 165/69 H 95 Pulse Ox 03/10/19 08:37 03/10/19 06:53 03/10/19 05:59 97 03/10/19 03:00 03/09/19 23:40 96 03/09/19 23:00 Date Exam was Performed: 03/10/19 Time Exam was Performed: 10:28 - Problem List Review Problem List Initiated/Reviewed/Updated: Yes - My Orders Last 24 Hours: My Active Orders 03/09/19 14:30 CULTURE BLOOD [BC] Stat 03/09/19 17:15 Blood Culture x2 Reflex Set [OM.PC] Stat 03/09/19 17:16 PROCALCITONIN [REF] Routine 03/09/19 17:30 Enoxaparin [Lovenox] 40 mg SUBCUT Q24H 03/09/19 17:53 RT Aerosol Therapy [RC] ASDIRECTED 03/09/19 18:20 CULTURE BLOOD [BC] Stat 03/09/19 21:00 ClonazePAM [KlonoPIN] 0.5 mg PO BID 03/09/19 23:00 Albuterol [Proventil Neb Soln] 2.5 mg NEB Q6HRRT 03/09/19 23:55 Communication Order [RC] 0900,2100 03/09/19 Dinner ADA Diabetic [[place] [employer] Diet] [DIET] 03/10/19 08:00 predniSONE 40 mg PO WITHBREAKFAST 03/10/19 09:00 Escitalopram [Lexapro] 20 mg PO DAILY Montelukast [Singulair] 10 mg PO DAILY Oseltamivir [Tamiflu] 75 mg PO BID Primidone [Mysoline] 50 mg PO DAILY Propranolol [Inderal LA] 80 mg PO DAILY Topiramate [Topamax] 50 mg PO DAILY allopurinoL [Zyloprim] 300 mg PO DAILY - Plan Plan:: HPI: This 73 yo male presented to the ED with concerns of 24-36 hours of fevers , chills, productive cough, shortness of breath and dizziness. Has had a poor appetite. He has underlying asthma. He did receive an influenza vaccine this year. He lives alone with a daughter next door. 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. Last evaluated by him April 2018. Pertinent ED work-up: WBC 12.3 with neutrophilia Hgb 13.0 Na 135 Creatinine 0.89 Influenza swab positive for type A CXR-findings consistent with bronchitis, no focal infiltrate 1 liter NS bolus Solumedrol 125 mg IV x 1 Tamiflu 75 mg po x 1 Albuterol neb x 1 Primary assessment/plan: Influenza A, improving. WBC 10.1 with neutrophilia. ESR 29, lactic acid 0.8. Procalcitonin pending. Continue oral tamiflu, albuterol nebs QID, and tylenol PRN. Fever, resolved. BC x 2 pending. UA negative. Dehydration, improving. Creatinine 0.71. DC IVFs. Accurate I & O. Dizziness, resolving. Feels unsteady on his feet and lives at home alone. Will continue to monitor. Shortness of breath, improving. BNP 298. ECHO (2018) noted EF 65-70% with normal systolic & diastolic dysfunction. Moderate persistent asthma, improving. Prednisone 40 mg po daily. Continue Singulair. No oxygen requirement. Restart Advair. Moody face appearance. TSH 0.63. Likely related to overall obesity. Not on chronic oral steroids. HTN, improving. BP 137/67. Hold spironolactone d/t dehydration. Review of past record notes he had been on norvasc and irbesartan in the past. May need to restart these, but will monitor for now. Secondary assessment/plan: Allergic rhinitis. Sleep apnea. HLD. LDL 97 (2018). Not on statin. Gout. Continue allopurinol. Obesity. Depression. Continue lexapro. Anxiety. Continue clonazepam. Seasonal allergies. Essential tremor. Continue primidone, propranolol, and Topamax. Hyperglycemia. A1c 6.4 (2018). Quit taking metformin. ADA diet. DVT prophylaxis. Score 4. Lovenox 40 mg SQ daily. Overall plan: Discontinue IVFs. Monitor oral intake and output. Continue tamiflu , prednisone, and supportive measures. Anticipate discharge in the AM.
[2019-03-10] MEDS ORDERED: Formoterol/Mometasone 200-5 MCG 8.8 GM Inhaler IH SCH (10:30)
[2019-03-10] MEDS: Fluticasone/Salmeterol 500-50 MCG Inhalation Powder 14/Diskus INH SCH ×2 (11:58→20:09)
[2019-03-10] MEDS: Enoxaparin 40 MG/0.4 ML Syringe SUBCUT SCH (16:56)
[2019-03-11] MEDS: Albuterol 0.083% 2.5 MG/3 ML Neb Soln NEB SCH (05:51)
[2019-03-11] MEDS: Fluticasone/Salmeterol 500-50 MCG Inhalation Powder 14/Diskus INH SCH (08:34)
[2019-03-11] MEDS: predniSONE 20 MG Tab PO SCH (09:11)
[2019-03-11] MEDS: Propranolol 80 MG Cap.ER PO SCH (09:11)
[2019-03-11] MEDS: Topiramate 25 MG Tab PO SCH (09:12)
[2019-03-11] MEDS: Montelukast 10 MG Tab PO SCH (09:12)
[2019-03-11] MEDS: Oseltamivir 75 MG Cap PO SCH (09:12)
[2019-03-11] MEDS: ClonazePAM 0.5 MG Tab PO SCH (09:12)
[2019-03-11] MEDS: Escitalopram 10 MG Tab PO SCH (09:12)
[2019-03-11] MEDS: Primidone 50 MG Tab PO SCH (09:12)
[2019-03-11] MEDS: Allopurinol 100 MG Tab PO SCH (09:13)
--- NOTE | 2019-03-11 10:16 | PCM.DCSUM1 ---
Discharge Summary - Hospital Course Diagnosis: Stroke: No - Discharge Data Discharge Date: 03/11/19 Discharge Disposition: Home, Self-Care 01 Condition: Good - Referral to Home Health Primary Care Physician: Consuelo Vidal MD - Patient Instructions Diet: Usual Diet as Tolerated Activity: As Tolerated, Cough & Deep Breathe Driving: May Drive Today Showering/Bathing: May Shower Notify Provider of: Fever Other/Special Instructions: report any shortness of breath. If your sputum turns brown, green call provider - Discharge Plan *PRESCRIPTION DRUG MONITORING PROGRAM REVIEWED*: Not Applicable *COPY OF PRESCRIPTION DRUG MONITORING REPORT IN PATIENT BUDDY: Not Applicable Prescriptions/Med Rec: Oseltamivir [Tamiflu] 75 mg PO BID #6 cap Home Medications: Home Meds Albuterol [Ventolin HFA] 2 puff INH Q6H PRN 03/09/19 [History] Escitalopram Oxalate 20 mg PO DAILY 03/09/19 [History] Fluticasone/Salmeterol [Advair 500-50] 1 puff BID 03/09/19 [History] Montelukast Sodium 10 mg PO BEDTIME 03/09/19 [History] Primidone 100 mg PO BEDTIME 03/09/19 [History] Propranolol HCl [Propranolol] 80 mg PO BEDTIME 03/09/19 [History] Spironolactone [Aldactone] 25 mg PO DAILY 03/09/19 [History] Topiramate 50 mg PO BID 03/09/19 [History] allopurinoL [Zyloprim] 300 mg PO DAILY 03/09/19 [History] clonazePAM [Clonazepam] 0.5 mg PO BEDTIME 03/09/19 [History] Ergocalciferol (Vitamin D2) [Vitamin D2] 50,000 unit PO Q7D 03/11/19 [History] Irbesartan [Avapro] 300 mg PO DAILY 03/11/19 [History] Oseltamivir [Tamiflu] 75 mg PO BID #6 cap 03/11/19 [Rx] Vitamin B Complex [B Complex] 1 each PO DAILY 03/11/19 [History] Referrals: PCP,Not In Area [Family Provider] - (anybody of his choice any clinic SUNDAY) - Discharge Summary/Plan Comment DC Time >30 min.: Yes Discharge Summary/Plan Comment: Final Dx: Influenza A, Dehydration, Dizziness, Moderate persistent asthma, HTN, improved from baseline History summary 73 yo male presented to the ED with due to fever he had for about 1 to 1-1/2 days along with fevers, chills, productive cough, shortness of breath and dizziness. He did admit to not eating much. He was admitted for further work- up Pertinent ED work-up: WBC 12.3 with neutrophilia Hgb 13.0 Na 135 Creatinine 0.89 Influenza swab positive for type A CXR-findings consistent with bronchitis, no focal infiltrate 1 liter NS bolus Solumedrol 125 mg IV x 1 Tamiflu 75 mg po x 1 Albuterol neb x 1 Hospital course, went as expected without complication. See ED work-up below as the patient was positive for influenza type A despite him having the vaccinations. He was started on Tamiflu, he did have evaded ESR however procalcitonin was on concerning normal lactic acid, temperature greater than 101 blood cultures were drawn, growth, he did receive IV fluids for symptomatic dehydration and was given IV fluids, this improved greatly he does have moderate persistent asthma steroid burst of 40 mg was given daily, his Advair and is a butyryl inhalers were on hold he was continue with Singulair he had no oxygen requirements, TSH was normal spironolactone was held due to slight dehydration. White count was trending down at 10,000 upon discharge electrolytes were normal upon discharge. He was given low molecular weight heparin for DVT prophylaxis, his metformin was stopped due to hemoglobin A1c of 6.4%. Medication changes/adjustments upon discharge Tamiflu 75 mg p.o. twice daily x3 days Discontinue metformin Patient can continue on all other home meds Disposition patient will be discharged home observation to self-care, good family support, he will follow-up with provider of his choice into the week, discharge instructions and symptoms to monitor for were given to the patient - General Info Functional Status: Reports: Pain Controlled - Review of Systems General: Reports: Appetite. Denies: Fever, Weakness, Fatigue, Malaise, Chills HEENT: Reports: No Symptoms Pulmonary: Reports: Cough (Yellow mucus) Cardiovascular: Reports: No Symptoms Gastrointestinal: Reports: No Symptoms Genitourinary: Reports: No Symptoms Musculoskeletal: Reports: No Symptoms Skin: Reports: No Symptoms Neurological: Reports: No Symptoms Psychiatric: Reports: No Symptoms - Patient Data Vitals - Most Recent: Last Vital Signs Temp 98.2 F 03/11/19 06:31 Pulse 64 03/11/19 09:11 Resp 24 H 03/11/19 06:31 BP 127/74 03/11/19 09:11 Pulse Ox 96 03/11/19 06:31 Weight - Most Recent: 238 lb 3 oz I&O - Last 24 hours: Intake & Output 03/10/19 03/11/19 03/11/19 22:59 06:59 14:59 Intake Total 820 200 Balance 820 200 Lab Results - Last 24 hrs: Laboratory Results - last 24 hr 03/10/19 Range/Units 07:20 Procalcitonin <0.05 (<0.10) ng/mL [facility] Results - Last 24 hrs: Microbiology 03/09/19 14:30 Aerobic Blood Culture - Preliminary Blood - Venous NO GROWTH AFTER 1 DAY Anaerobic Blood Culture - Preliminary NO GROWTH AFTER 1 DAY 03/09/19 18:20 Aerobic Blood Culture - Preliminary Blood - Venous - Lab Draw NO GROWTH AFTER 1 DAY Anaerobic Blood Culture - Preliminary NO GROWTH AFTER 1 DAY Med Orders - Current: Current Medications Acetaminophen (Tylenol) 650 mg PO Q4H PRN PRN Reason: analgesia/fever Albuterol (Proventil Neb Soln) 2.5 mg NEB Q6HRRT [facility] Last Admin: 03/11/19 05:51 Dose: 2.5 mg Allopurinol (Zyloprim) 300 mg PO DAILY [facility] Last Admin: 03/11/19 09:13 Dose: 300 mg Clonazepam (Klonopin) 0.5 mg PO BID [facility] Last Admin: 03/11/19 09:12 Dose: 0.5 mg Enoxaparin Sodium (Lovenox) 40 mg SUBCUT Q24H [facility] Last Admin: 03/10/19 16:56 Dose: 40 mg Escitalopram Oxalate (Lexapro) 20 mg PO DAILY [facility] Last Admin: 03/11/19 09:12 Dose: 20 mg Montelukast Sodium (Singulair) 10 mg PO DAILY [facility] Last Admin: 03/11/19 09:12 Dose: 10 mg Oseltamivir Phosphate (Tamiflu) 75 mg PO BID [facility] Last Admin: 03/11/19 09:12 Dose: 75 mg Prednisone (Prednisone) 40 mg PO WITHBREAKFAST [facility] Last Admin: 03/11/19 09:11 Dose: 40 mg Primidone (Mysoline) 50 mg PO DAILY [facility] Last Admin: 03/11/19 09:12 Dose: 50 mg Propranolol HCl (Inderal La) 80 mg PO DAILY [facility] Last Admin: 03/11/19 09:11 Dose: 80 mg Fluticasone/Salmeterol (Advair Diskus 500-50) 1 puff INH BIDRT [facility] Last Admin: 03/11/19 08:34 Dose: 1 puff Sodium Chloride (Saline Flush) 10 ml FLUSH Q8HR PRN PRN Reason: keep vein open Topiramate (Topamax) 50 mg PO DAILY [facility] Last Admin: 03/11/19 09:12 Dose: 50 mg Discontinued Medications Acetaminophen (Tylenol Extra Strength) 1,000 mg PO ONETIME ONE Stop: 03/09/19 15:11 Last Admin: 03/09/19 15:14 Dose: 1,000 mg Albuterol (Proventil Neb Soln) 2.5 mg NEB ONETIME ONE Stop: 03/09/19 15:20 Last Admin: 03/09/19 15:24 Dose: 2.5 mg Sodium Chloride (Normal Saline) 1,000 mls @ 999 mls/hr IV .BOLUS ONE Stop: 03/09/19 16:12 Last Admin: 03/09/19 15:17 Dose: 999 mls/hr Sodium Chloride (Normal Saline) 1,000 mls @ 1,000 mls/hr IV .BOLUS ONE Stop: 03/09/19 16:12 Last Admin: 03/09/19 15:28 Dose: Not Given Sodium Chloride (Normal Saline) Confirm Administered Dose 1,000 mls @ as directed .ROUTE .STK-MED ONE Stop: 03/09/19 16:28 Last Admin: 03/09/19 17:08 Dose: Not Given Sodium Chloride (Normal Saline) 1,000 mls @ 125 mls/hr IV ASDIRECTED [facility] Last Admin: 03/10/19 00:03 Dose: 125 mls/hr Methylprednisolone Sodium Succinate (Solu-Medrol) 125 mg IVPUSH ONETIME ONE Stop: 03/09/19 15:13 Last Admin: 03/09/19 15:17 Dose: 125 mg Mometasone Furoate/Formoterol Fumar (Dulera 200-5 Mcg) 2 puff IH BID [facility] Last Admin: 03/10/19 10:50 Dose: Not Given Oseltamivir Phosphate (Tamiflu) 75 mg PO ONETIME ONE Stop: 03/09/19 15:36 Last Admin: 03/09/19 15:41 Dose: 75 mg - Exam Quality Assessment: Reports: DVT Prophylaxis. Denies: Supplemental Oxygen General: Reports: Alert, Oriented Neck: Reports: Supple Lungs: Reports: Clear to Auscultation, Normal Respiratory Effort Cardiovascular: Reports: Regular Rate, Regular Rhythm GI/Abdominal Exam: Soft
== END 2019-03-11 12:05 | disposition home or self-care (01) ==
LOC: KA.ED 14:09 → KA.MS 16:40
PROVIDERS: ADMIT Physician Assistant; ATTEND Nurse Practitioner Family
DX: J10.1 Influenza due to other identified influenza virus with other respiratory manifestations (principal); E86.0 Dehydration; R42 Dizziness and giddiness; J45.40 Moderate persistent asthma, uncomplicated; I10 Essential (primary) hypertension; E78.5 Hyperlipidemia, unspecified; F32.9 Major depressive disorder, single episode, unspecified; F41.9 Anxiety disorder, unspecified; J30.2 Other seasonal allergic rhinitis; R73.9 Hyperglycemia, unspecified; M10.9 Gout, unspecified; G47.30 Sleep apnea, unspecified; E66.9 Obesity, unspecified; Z91.048 Other nonmedicinal substance allergy status; Z79.899 Other long term (current) drug therapy; Z79.51 Long term (current) use of inhaled steroids; Z68.36 Body mass index [BMI] 36.0-36.9, adult
CPT/HCPCS: 36415; 71046; 80048; 80053; 81001; 83605; 83880; 84145; 84443; 85025; 85651; 87040; 87804; 94640; 96361; 96372; 96374; 99283; 99285-25; A9270-GY; G0378; J1650; J2930; J7030; J7613-GY

== ENCOUNTER 2022-04-21 10:32 | Emergency (ER) | payer MEDICARE, BC ==
[2022-04-21] MEDS: Sodium Chloride 0.9% 1,000 ML IV ONE (11:00)
[2022-04-21 11:13] LABS: ANION GAP 12.6 mmol/L (5-15)
[2022-04-21 11:34] LABS: STREP A BY PCR NOT DETECTED (NOT DETECT)
[2022-04-21 11:40] LABS: CORONAVIRUS COVID-19 NAA NEGATIVE (NEGATIVE)
[2022-04-21] MEDS: Albuterol/Ipratropium 3.0-0.5 MG/3 ML Neb Soln NEB ONE (11:42)
[2022-04-21] MEDS: cefTRIAXone 1 GM Vial IVPUSH ONE (12:00)
[2022-04-21] MEDS ORDERED: Ibuprofen 600 MG Tab PO ONE (12:34)
== END 2022-04-21 13:30 | disposition home or self-care (01) ==
LOC: KA.ED 10:32
DX: J44.1 Chronic obstructive pulmonary disease with (acute) exacerbation (principal); H66.92 Otitis media, unspecified, left ear; I10 Essential (primary) hypertension; E66.9 Obesity, unspecified; Z68.35 Body mass index [BMI] 35.0-35.9, adult; Z91.048 Other nonmedicinal substance allergy status; Z79.899 Other long term (current) drug therapy; Z20.822 Contact with and (suspected) exposure to COVID-19
CPT/HCPCS: 0240U; 71045; 80053; 85025; 87651-QW; 94640; 96361; 96374; 99284; 99284-25; J0696; J7030; J7620-GY

== ENCOUNTER 2024-03-01 21:22 | Emergency (ER) | payer MEDICARE, BC ==
[2024-03-01 21:42] LABS: BASOPHILS ABSOLUTE AUTO 0.06 10^3/uL (0.00-0.10); BASOPHILS PERCENT AUTO 0.4 % (0.0-1.0); EOSINOPHILS ABSOLUTE AUTO 0.03 10^3/uL (0.10-0.30); EOSINOPHILS PERCENT AUTO 0.2 % (1.0-3.0); HEMATOCRIT 48.3 % (40.0-52.0); HEMOGLOBIN 16.4 g/dL (13.0-17.0); IMMATURE GRAN ABSOLUTE AUTO 0.03 10^3/uL (0.00-0.04); IMMATURE GRAN PERCENT AUTO 0.2 % (0.0-0.4); LYMPHOCYTES ABSOLUTE AUTO 1.96 10^3/uL (1.00-4.00); LYMPHOCYTES PERCENT AUTO 14.1 % (20.0-40.0); MEAN CORPUSCULAR HEMOGLOBIN 30.7 pg (27.0-31.0); MEAN CORPUSCULAR VOLUME 90.4 fL (82.0-92.0); MEAN PLATELET VOLUME 11.4 fL (7.4-10.4); MONOCYTES ABSOLUTE AUTO 0.97 10^3/uL (0.10-0.80); NEUTROPHILS ABSOLUTE AUTO 10.86 10^3/uL (2.50-7.00); NEUTROPHILS PERCENT AUTO 78.1 % (50.0-70.0); PLATELET COUNT,PLT 125 10^3/uL (150-400); RED BLOOD CELL COUNT 5.34 10^6/uL (4.50-6.00); RED CELL DISTRIBUTION WIDTH 13.8 % (11.5-14.5); WHITE BLOOD CELL COUNT,WBC 13.91 10^3/uL (5.00-10.00)
[2024-03-01 21:46] LABS: INR 1.1 (0.9-1.1)
[2024-03-01 22:09] LABS: APPEARANCE,URINE CLEAR (CLEAR); BILIRUBIN,URINE SMALL (NEGATIVE); COLOR,URINE YELLOW (YELLOW); GLUCOSE,URINE NEGATIVE (NEGATIVE); KETONES,URINE 15 mg/dL (NEGATIVE); LEUKOCYTE ESTERASE,URINE NEGATIVE (NEGATIVE); NITRITE,URINE NEGATIVE (NEGATIVE); OCCULT BLOOD,URINE TRACE-INTACT (NEGATIVE); PROTEIN,URINE 30 mg/dL (NEGATIVE); UROBILINOGEN,URINE 0.2 E.U./dL (0.2-1.0)
[2024-03-01 22:10] LABS: BACTERIA,URINE FEW /HPF (NONE TO FEW); EPITHELIAL CELLS,URINE RARE /LPF; GRANULAR CASTS,URINE FEW; HYALINE CASTS,URINE RARE; MUCUS,URINE RARE /LPF (NEGATIVE); WBC,URINE 0-5 /HPF (0-5)
[2024-03-01] MEDS: Sodium Chloride 0.9% 50 ML IV SCH (22:21)
[2024-03-01] MEDS: Iopamidol 755 Mg/ML 100 ML Bottle IV ONE (22:21)
[2024-03-01 22:24] LABS: ETHANOL BLOOD MEDICAL < 3 mg/dL (<3)
[2024-03-01 22:25] LABS: CREATINE KINASE,CK 919 U/L (26-276)
[2024-03-01 22:27] LABS: ALBUMIN 3.79 g/dL (3.40-5.00); ANION GAP 17.3 mmol/L (5-15); BILIRUBIN TOTAL 0.7 mg/dL (0.2-1.0); CALCIUM 9.3 mg/dL (8.7-10.3); CARBON DIOXIDE,CO2 25.1 mmol/L (21.0-32.0); CREATININE 1.12 mg/dL (0.51-1.17); EST CRCL DRUG DOSING (CG) 59.66 mL/min; POTASSIUM,K 4.4 mmol/L (3.5-5.1); PROTEIN TOTAL,TP 7.6 g/dL (6.4-8.2)
[2024-03-01] MEDS: Sodium Chloride 0.9% 1,000 ML IV ONE (22:28)
[2024-03-01] MEDS: Sodium Chloride 0.9% 1,000 ML ONE (22:36)
== END 2024-03-01 23:57 ==
LOC: KA.ED 21:22
DX: S02.2XXA Fracture of nasal bones, initial encounter for closed fracture (principal); M62.82 Rhabdomyolysis; I10 Essential (primary) hypertension; J44.89 Other specified chronic obstructive pulmonary disease; E66.9 Obesity, unspecified; Z68.32 Body mass index [BMI] 32.0-32.9, adult; Z91.048 Other nonmedicinal substance allergy status; Z79.51 Long term (current) use of inhaled steroids; Z79.899 Other long term (current) drug therapy; W18.30XA Fall on same level, unspecified, initial encounter
CPT/HCPCS: 36415; 70450; 70486; 71260; 72125; 74177; 80053; 80307; 81001; 82550; 83605; 85025; 85610; 93005; 93010; 96360; 99284; 99285-25; J3490; J7030; Q9967

== ENCOUNTER 2024-05-13 19:22 | Inpatient (IN) | payer MEDICARE, BC ==
[2024-05-13] MEDS ORDERED: Sodium Chloride 0.9% 10 ML Syringe FLUSH PRN (19:29)
[2024-05-13 19:41] LABS: BASOPHILS ABSOLUTE AUTO 0.03 10^3/uL (0.00-0.10); BASOPHILS PERCENT AUTO 0.2 % (0.0-1.0); EOSINOPHILS PERCENT AUTO 0.7 % (1.0-3.0); HEMATOCRIT 44.7 % (40.0-52.0); HEMOGLOBIN 14.8 g/dL (13.0-17.0); IMMATURE GRAN ABSOLUTE AUTO 0.04 10^3/uL (0.00-0.04); IMMATURE GRAN PERCENT AUTO 0.3 % (0.0-0.4); LYMPHOCYTES ABSOLUTE AUTO 1.97 10^3/uL (1.00-4.00); LYMPHOCYTES PERCENT AUTO 13.6 % (20.0-40.0); MEAN CORPUSCULAR HEMOGLOBIN 30.2 pg (27.0-31.0); MEAN CORPUSCULAR HGB CONC 33.1 g/dL (32.0-36.0); MEAN CORPUSCULAR VOLUME 91.2 fL (82.0-92.0); MEAN PLATELET VOLUME 9.9 fL (7.4-10.4); MONOCYTES ABSOLUTE AUTO 0.87 10^3/uL (0.10-0.80); NEUTROPHILS ABSOLUTE AUTO 11.49 10^3/uL (2.50-7.00); NEUTROPHILS PERCENT AUTO 79.2 % (50.0-70.0); PLATELET COUNT,PLT 293 10^3/uL (150-400); RED CELL DISTRIBUTION WIDTH 13.5 % (11.5-14.5)
[2024-05-13 19:45] LABS: APPEARANCE,URINE CLEAR (CLEAR); BILIRUBIN,URINE NEGATIVE (NEGATIVE); COLOR,URINE YELLOW (YELLOW); GLUCOSE,URINE NEGATIVE (NEGATIVE); KETONES,URINE NEGATIVE (NEGATIVE); LEUKOCYTE ESTERASE,URINE NEGATIVE (NEGATIVE); NITRITE,URINE NEGATIVE (NEGATIVE); OCCULT BLOOD,URINE NEGATIVE (NEGATIVE); PROTEIN,URINE NEGATIVE (NEGATIVE); UROBILINOGEN,URINE 0.2 E.U./dL (0.2-1.0)
[2024-05-13 19:52] LABS: ALBUMIN 3.32 g/dL (3.40-5.00); ANION GAP 13.8 mmol/L (5-15); BILIRUBIN TOTAL 0.4 mg/dL (0.2-1.0); CALCIUM 9.2 mg/dL (8.7-10.3); CARBON DIOXIDE,CO2 26.2 mmol/L (21.0-32.0); CREATININE 1.01 mg/dL (0.51-1.17); EST CRCL DRUG DOSING (CG) 58.32 mL/min; PROTEIN TOTAL,TP 6.8 g/dL (6.4-8.2)
[2024-05-13] MEDS: Sodium Chloride 0.9% 1,000 ML IV SCH (21:55)
[2024-05-13] MEDS ORDERED: Acetaminophen 325 MG Tab PO PRN (22:51)
[2024-05-13] MEDS: Sodium Chloride 0.9% 1,000 ML ONE (22:54)
[2024-05-13] MEDS ORDERED: Albuterol 8 GM Inhaler INH PRN (22:56)
[2024-05-13] MEDS ORDERED: Lactated Ringers 1,000 ML IV SCH (23:00)
[2024-05-13] MEDS ORDERED: Sodium Chloride 0.9% 1,000 ML IV SCH (23:45)
[2024-05-13] MEDS: Ondansetron 4 MG/2 ML SDV IV PRN (23:53)
[2024-05-14 08:08] LABS: BASOPHILS ABSOLUTE AUTO 0.03 10^3/uL (0.00-0.10); BASOPHILS PERCENT AUTO 0.3 % (0.0-1.0); EOSINOPHILS ABSOLUTE AUTO 0.34 10^3/uL (0.10-0.30); EOSINOPHILS PERCENT AUTO 3.4 % (1.0-3.0); HEMATOCRIT 40.8 % (40.0-52.0); HEMOGLOBIN 13.3 g/dL (13.0-17.0); IMMATURE GRAN ABSOLUTE AUTO 0.02 10^3/uL (0.00-0.04); IMMATURE GRAN PERCENT AUTO 0.2 % (0.0-0.4); LYMPHOCYTES ABSOLUTE AUTO 2.46 10^3/uL (1.00-4.00); LYMPHOCYTES PERCENT AUTO 24.6 % (20.0-40.0); MEAN CORPUSCULAR HEMOGLOBIN 30.2 pg (27.0-31.0); MEAN CORPUSCULAR HGB CONC 32.6 g/dL (32.0-36.0); MEAN CORPUSCULAR VOLUME 92.5 fL (82.0-92.0); MEAN PLATELET VOLUME 10.1 fL (7.4-10.4); MONOCYTES ABSOLUTE AUTO 0.85 10^3/uL (0.10-0.80); MONOCYTES PERCENT AUTO 8.5 % (2.0-8.0); NEUTROPHILS ABSOLUTE AUTO 6.28 10^3/uL (2.50-7.00); PLATELET COUNT,PLT 237 10^3/uL (150-400); RED BLOOD CELL COUNT 4.41 10^6/uL (4.50-6.00); RED CELL DISTRIBUTION WIDTH 13.7 % (11.5-14.5); WHITE BLOOD CELL COUNT,WBC 9.98 10^3/uL (5.00-10.00)
[2024-05-14] MEDS: Allopurinol 100 MG Tab PO SCH (08:56)
[2024-05-14] MEDS: Enoxaparin 40 MG/0.4 ML Syringe SUBCUT SCH (08:56)
[2024-05-14] MEDS: amLODIPine 5 MG Tab PO SCH (08:57)
[2024-05-14] MEDS: Escitalopram 10 MG Tab PO SCH (08:57)
[2024-05-14] MEDS: Topiramate 25 MG Tab PO SCH (08:57)
[2024-05-14 11:53] LABS: ANION GAP 13.6 mmol/L (5-15); CALCIUM 8.6 mg/dL (8.7-10.3); CARBON DIOXIDE,CO2 24.9 mmol/L (21.0-32.0); CREATININE 0.95 mg/dL (0.51-1.17); POTASSIUM,K 4.5 mmol/L (3.5-5.1)
[2024-05-14] MEDS: Montelukast 10 MG Tab PO SCH (20:22)
[2024-05-14] MEDS: ClonazePAM 0.5 MG Tab PO SCH (20:22)
[2024-05-15 08:03] LABS: ANION GAP 12.9 mmol/L (5-15); CALCIUM 8.5 mg/dL (8.7-10.3); CARBON DIOXIDE,CO2 26.8 mmol/L (21.0-32.0); CREATININE 0.88 mg/dL (0.51-1.17); EST CRCL DRUG DOSING (CG) 66.93 mL/min; POTASSIUM,K 4.7 mmol/L (3.5-5.1)
[2024-05-15] MEDS: TIRZEPATIDE 5 MG/0.5 ML SUBCUT SCH (17:51)
[2024-05-15] MEDS: Propranolol 80 MG Cap.ER PO SCH (20:28)
[2024-05-15] MEDS: Primidone 50 MG Tab PO SCH (20:28)
[2024-05-16 07:59] LABS: ANION GAP 13.5 mmol/L (5-15); CALCIUM 8.6 mg/dL (8.7-10.3); CARBON DIOXIDE,CO2 26.9 mmol/L (21.0-32.0); CREATININE 0.88 mg/dL (0.51-1.17); EST CRCL DRUG DOSING (CG) 66.93 mL/min; POTASSIUM,K 4.4 mmol/L (3.5-5.1)
[2024-05-16] MEDS: IRBESARTAN 300 MG PO SCH (11:47)
== END 2024-05-16 13:38 | disposition swing bed (61) | DRG 392 ==
LOC: KA.ED 19:22 → KA.MS 21:53
PROVIDERS: ADMIT Nurse Practitioner; ATTEND Internal Medicine
DX: A08.4 Viral intestinal infection, unspecified (principal); E86.1 Hypovolemia; W19.XXXD Unspecified fall, subsequent encounter; Z68.36 Body mass index [BMI] 36.0-36.9, adult; H54.7 Unspecified visual loss; Z91.048 Other nonmedicinal substance allergy status; Z68.37 Body mass index [BMI] 37.0-37.9, adult; W19.XXXA Unspecified fall, initial encounter; I10 Essential (primary) hypertension; J45.909 Unspecified asthma, uncomplicated; J44.9 Chronic obstructive pulmonary disease, unspecified; G47.30 Sleep apnea, unspecified; M10.9 Gout, unspecified; F41.9 Anxiety disorder, unspecified; F32.A Depression, unspecified; E66.9 Obesity, unspecified; E55.9 Vitamin D deficiency, unspecified; E86.0 Dehydration; Z79.899 Other long term (current) drug therapy
CPT/HCPCS: 36415; 70450; 71045; 80048; 80053; 81003; 82550; 83605; 83880; 84484; 85025; 87040; 93005; 93010; 99223-GT; 99232-GT; 99233-GT; 99239-GT; 99284; 99285; A9270-GY; J1650; J2405; J7030; Q3014

== ENCOUNTER 2024-05-16 13:49 | Inpatient (IN) | payer MEDICARE, BC ==
[2024-05-16] MEDS ORDERED: Acetaminophen 325 MG Tab PO PRN (14:10)
[2024-05-16] MEDS ORDERED: Ondansetron 4 MG/2 ML SDV IV PRN (14:10)
[2024-05-16] MEDS ORDERED: TIRZEPATIDE 5 MG SUBCUT SCH (14:10)
[2024-05-16] MEDS ORDERED: Sodium Chloride 0.9% 10 ML Syringe FLUSH PRN (14:10)
[2024-05-16] MEDS: Topiramate 25 MG Tab PO SCH (20:21)
[2024-05-16] MEDS: Propranolol 80 MG Cap.ER PO SCH (20:21)
[2024-05-16] MEDS: Montelukast 10 MG Tab PO SCH (20:22)
[2024-05-16] MEDS: Primidone 50 MG Tab PO SCH (20:22)
[2024-05-16] MEDS: ClonazePAM 0.5 MG Tab PO SCH (20:22)
[2024-05-16] MEDS: Albuterol 8 GM Inhaler INH PRN (23:14)
[2024-05-17] MEDS: Escitalopram 10 MG Tab PO SCH (08:51)
[2024-05-17] MEDS: Allopurinol 100 MG Tab PO SCH (08:54)
[2024-05-17] MEDS: amLODIPine 5 MG Tab PO SCH (08:54)
[2024-05-17] MEDS: IRBESARTAN 300 MG PO SCH (08:55)
[2024-05-17] MEDS: Enoxaparin 40 MG/0.4 ML Syringe SUBCUT SCH (08:56)
[2024-05-18] MEDS: Calcium Carbonate 500 MG Tab.Chew PO PRN (01:12)
[2024-05-18] MEDS: Simethicone 80 MG Tab.Chew PO PRN (13:14)
[2024-05-20] MEDS: Ondansetron 4 MG Tab.DIS PO PRN (04:41)
[2024-05-21 10:59] LABS: MAGNESIUM 1.6 mg/dL (1.8-2.4); PHOSPHORUS 3.5 mg/dL (2.6-4.7)
[2024-05-21] MEDS: Magnesium Oxide 500 MG Tab PO SCH (17:31)
[2024-05-22 07:31] VITALS: BP 112/62
[2024-05-22 07:38] VITALS: PULSE 54
== END 2024-05-22 08:13 | DRG 948 ==
LOC: KA.MS 13:53
PROVIDERS: ADMIT Internal Medicine; ATTEND Internal Medicine
DX: R53.1 Weakness (principal); R62.7 Adult failure to thrive; E86.1 Hypovolemia; W19.XXXA Unspecified fall, initial encounter; A08.4 Viral intestinal infection, unspecified; R53.81 Other malaise; E86.0 Dehydration; Z79.899 Other long term (current) drug therapy
CPT/HCPCS: 36415; 83735; 84100; 92523; A9270-GY; J1650; Q3014

== ENCOUNTER 2024-10-12 13:44 | Emergency (ER) | payer MEDICARE, BC ==
[2024-10-12] MEDS: Bacitracin/Neomycin/Polymyxin B Oint 0.9 GM U/D Packet ONE (14:36)
[2024-10-12] MEDS: Bacitracin/Neomycin/Polymyxin B Oint 28.4 GM Tube TOP ONE (14:37)
[2024-10-12] MEDS: Bacitracin/Neomycin/Polymyxin B Oint 0.9 GM U/D Packet TOP ONE (14:38)
== END 2024-10-12 14:20 ==
LOC: KA.ED 13:44
DX: S00.01XA Abrasion of scalp, initial encounter (principal); I10 Essential (primary) hypertension; E66.9 Obesity, unspecified; J44.89 Other specified chronic obstructive pulmonary disease; Z68.32 Body mass index [BMI] 32.0-32.9, adult; Z91.048 Other nonmedicinal substance allergy status; Z79.51 Long term (current) use of inhaled steroids; Z79.899 Other long term (current) drug therapy; W01.198A Fall on same level from slipping, tripping and stumbling with subsequent striking against other object, initial encounter
CPT/HCPCS: 99283; 99284